=== PATIENT | male | born 1950 | race Caucasian/White ===

== ENCOUNTER 2023-09-12 09:58 | Observation (INO) | payer MEDICARE, OTHER, SELFPAY ==
[2023-09-12 09:59] VITALS: BP 151/74; PULSE 67; RESP 16; TEMP 36.2; O2SAT 97; BMI 24.5
--- NOTE | 2023-09-12 10:36 | CT_ITS ---
STUDY: CT ABDOMEN AND PELVIS WITH CONTRAST REASON FOR EXAM: Male, 73 years old. Abd pain RADIATION DOSAGE (If Supplied By Facility): CTDIvol = ( 12.14 ) mGy, DLP = ( 721.75 ) mGycm TECHNIQUE: Transaxial images were obtained from the dome of the diaphragm to the symphysis pubis without oral contrast. IV 100mL Isovue-370 was administered. Sagittal and coronal images were reconstructed. Individualized dose optimization techniques were used for this CT. COMPARISON: None. FINDINGS: The visualized lung bases are unremarkable. Coronary artery calcification. Normal liver. Normal gallbladder and extrahepatic biliary system. Normal spleen. There is diffuse atrophy of the pancreas. Normal bilateral adrenal glands. Normal right kidney. Punctate calculus in the posterior midpole of the left kidney. Normal visualized stomach. Normal small intestine. There are multiple colonic diverticula consistent with diverticulosis. The appendix is visualized and appears normal. There is diffuse atherosclerotic calcification of the abdominal aorta and its major visceral branches, without a demonstrated aneurysm. Normal inferior vena cava. Normal retroperitoneum. Diffuse bladder wall thickening. There are prostatic calcifications. There is a small umbilical hernia containing fat. There are mild degenerative changes of the visualized lumbar spine. There is straightening of the normal lumbar lordosis. Degenerative changes of the sacroiliac joints bilaterally. CT/Abdomen/Pelvis W IV Cont ONLY IMPRESSION: Punctate calculus in the posterior midpole of the left kidney. Sigmoid diverticulosis without evidence of diverticulitis. Electronically Signed: Arjun Saini MD at 12:42 EDT ,
--- NOTE | 2023-09-12 10:36 | EKG12_ITS ---
Test Reason : WEAKNESS Blood Pressure : / mmHG Vent. Rate : 065 BPM Atrial Rate : 065 BPM P-R Int : 182 ms QRS Dur : 090 ms QT Int : 438 ms P-R-T Axes : 061 035 058 degrees QTc Int : 455 ms Normal sinus rhythm Normal ECG Confirmed by Tylor Rizo ([id number]), web content editor LISS WIN ([id number]) on 09/16/2023 6:59:18 AM Referred By: Confirmed By:Tylor Rizo
--- NOTE | 2023-09-12 10:42 | EX.ED.DYSGE1 ---
HPI History of Present Illness Chief Complaint: Abd Pain Detail of Chief Complaint: Nausea, diarrhea, abdominal pain, back pain Informant: patient and family Narrative Narrative: Patient presents secondary to nausea with some mild abdominal pain and back pain. He is from [facility] and is here visiting his sister. She states that when he arrived here on Saturday he was not feeling well but Saturday was a good day. Saturday symptoms recurred. He does report chronic neck and back pain after a prior neck surgery. He is on Percocet chronically. He states he has had increased nausea and some diarrhea with occasional low back pain. Last evening he developed pain across his low back. [facility] Medical History (Updated 09/12/23 @ 12:[address] 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 Nano Sosa MD) History of cervical spinal surgery History of coronary artery stent placement Social History Smoking Status: Former smoker ROS ROS ED Constitutional Constitutional ED: Denies chills or fever(s) Eyes Eyes: Denies discharge from eye(s) ENT ENT ED: Denies discharge from eye(s), rhinorrhea or sore throat Cardiovascular Cardiovascular: Denies chest pain or palpitations Respiratory/Chest Respiratory/Chest: Denies cough or dyspnea Gastrointestinal Gastrointestinal: Reports abdominal pain, diarrhea and nausea; Denies vomiting Genitourinary Genitourinary ED: Reports difficulty urinating; Denies dysuria Musculoskeletal Musculoskeletal: Reports back pain; Denies extremity pain Integumentary Denies Abrasions or rash Neurologic Neurologic: Denies headache(s) or weakness Psychiatric Psychiatric: Denies anxiety or depression Allergic/Immunologic Allergic/Immunologic ED: Denies lip swelling or urticaria EXAM Physical Exam Const Vital Signs: 09/12/23 09:59 09/12/23 11:59 Temperature 97.2 F L Temperature Source Temporal Pulse Rate 67 65 Respiratory Rate 16 11 L Blood Pressure 151/74 H 155/73 H Blood Pressure Mean 99 100 Pulse Ox 97 97 Oxygen Delivery Method Room Air Room Air Positive well nourished and well developed General Appearance ED: well developed HEENT Reports moist mucous membranes Eyes EOMs intact bilaterally Neck no lymphadenopathy Chest Wall inspection of chest normal and palpation of chest normal Resp normal respiratory effort and clear to auscultation bilaterally Cardio regular rate and regular rhythm GI GI Narrative: Abdomen soft with no focal tenderness. Active bowel sounds noted throughout. No palpable masses. No guarding or rebound. Extremity normal to inspection Neuro oriented x3 and no sensory deficits noted Motor Exam: strength 5/5 throughout Psych mental status grossly normal Skin no rashes or lesions noted MDM MDM MDM Narrative Medical decision making narrative: Patient placed on maintenance mgr. IV line initiated. Labwork obtained to evaluate for leukocytosis, anemia, and electrolyte derangement. EKG obtained to evaluate for cardiac arrhythmia/ischemia. Urinalysis obtained to evaluate for infection/hematuria. CT scan of the abdomen and pelvis obtained to evaluate for bowel obstruction, kidney stone, urinary retention. Patient treated with morphine, Zofran, IV fluids. History & Record Review Discussion w/independent historian: Patient and Family Additional record(s) reviewed:: Prior labs Lab Data Attestation: I reviewed the patient's lab results. Labs: Laboratory Results - last 24 hr 09/12/23 09/12/23 10:18 11:06 WBC 6.3 RBC 3.98 L Hgb 12.5 L Hct 34.1 L MCV 85.7 MCH 31.4 MCHC 36.7 H RDW Std Deviation 36.8 RDW Coeff of Jodie 11.9 Plt Count 211 MPV 8.6 Immature Gran % (Auto) 0.600 Neut % (Auto) 72.4 H Lymph % (Auto) 15.5 L [place] % (Auto) 10.4 H Eos % (Auto) 0.8 Baso % (Auto) 0.3 Absolute Neuts (auto) 4.5 Absolute Lymphs (auto) 0.97 Nucleated RBC % 0 Sodium 121 L Potassium 3.4 L Chloride 86 L Carbon Dioxide 26.0 Anion Gap 9 BUN 8 Creatinine 0.70 Estim Creat Clear Calc 81.01 Est GFR (MDRD) Af Amer 142 Est GFR (MDRD) Non-Af 117 BUN/Creatinine Ratio 11.5 Glucose 104 Calcium 8.8 Total Bilirubin 1.70 H Direct Bilirubin 0.27 AST 15 ALT 27 Alkaline Phosphatase 53 Total Protein 7.1 Albumin 4.0 Globulin 3.1 Lipase 44 Urine Color Yellow Urine Clarity Clear Urine pH 7.0 Ur Specific [place] 1.010 Urine Protein Negative Urine Glucose (UA) Normal Urine Ketones Negative Urine Occult Blood 25 H Urine Nitrite Negative Urine Bilirubin Negative Urine Urobilinogen Normal Ur Leukocyte Esterase Negative Urine RBC 0 SEEN Urine WBC 0 SEEN Ur Squamous Epith Cells 0 SEEN Amorphous Sediment 1+ Urine Bacteria 0 SEEN Urine Mucus 0 SEEN Radiography Diagnostic Testing: Clinical Impression(s) from Imaging Studies Abdomen/Pelvis CT 09/12/23 10:36 IMPRESSION: Punctate calculus in the posterior midpole of the left kidney. Sigmoid diverticulosis without evidence of diverticulitis. Electronically Signed: Arjun Saini MD at 12:42 EDT , EKG Initial EKG: Attestation: I personally reviewed and interpreted this EKG as follows: Interpretation: Sinus Rhythm (Sinus at 65 with no acute ischemia.) Treatment and Re-Evaluation :: CBC was normal white count 6.3 with a hemoglobin of 12.5. 72% neutrophils noted. Chemistry studies significant for a sodium of 121 and a chloride of 86. Potassium is only slightly low at 3.4. Renal function is unremarkable. Total bilirubin is slightly elevated at 1.7. Remainder of LFTs and lipase are normal. Urinalysis reveals no evidence of acute infection. EKG is sinus rhythm with no evidence of acute ischemia. CT scan of the abdomen and pelvis reveals punctate calculus in the posterior midpole of left kidney. Sigmoid diverticulosis is noted without evidence of diverticulitis. Patient was able to provide a stool sample here. Fecal leukocytes are negative and C. difficile is negative. Remainder of stool studies are still pending at this time. Patient did get a dose of Phenergan and fentanyl for continued pain and nausea. He states that he has had problems with low sodium in the past and he was told by his doctors in [place] that it was because he was not eating and drinking appropriately to get the right nutrients. I was able to pull up prior labs and Clinisync. Over the last month and a half patient has had multiple admissions and labs with a sodium as low as 123. His most recent sodium level was 136 on August 29. Patient is currently receiving normal saline. With his sodium now being down 15 points in less than 2 weeks I do feel he will require admission for sodium repletion. I will speak with hospitalist regarding admission. Discharge Plan Triage Chief Complaint: Abd Pain ED Provider: Nano Sosa Dx/Rx/DC Orders Clinical Impression: Hyponatremia, Gastroenteritis Primary Care Provider: Care Physician,No Primary Referrals: Care Physician,No Primary [Primary Care Provider] - Print Language: Syriac Disposition Disposition: Acute Care Hospital [facility]
[2023-09-12 10:47] LABS: Absolute Lymphocyte Count 0.97 X10^3/uL (0.83-4.51); Absolute Neutrophil Count 4.5 X10^3/uL (2.0-7.7); Basophil# 0.02 X10^3/uL; Basophil% 0.3 % (0-1); Eosinophil# 0.05 X10^3/uL; Eosinophils% 0.8 % (0-5); Hematocrit 34.1 % (40-54); Hemoglobin 12.5 g/dL (13.0-16.5); Lymphocyte # 0.97 X10^3/ul (0.83-4.51); Lymphocyte % 15.5 % (19-41); Mean Corp Hgb Conc 36.7 g/dL (32-36); Mean Corpuscular Hgb 31.4 pg (27.0-32.0); Mean Corpuscular Volume 85.7 fL (80-94); Mean Platelet Vol. 8.6 fl (6.2-12.0); Monocyte# 0.65 X10^3/uL; Monocyte% 10.4 % (0-10); NRBC Flagged by Analyzer 0 % (0-5); Neutrophil # 4.53 X10^3/uL (2.7-7.7); Neutrophil % 72.4 % (47-70); Platelet Count 211 K/mm3 (150-450); RBC Distribution Width CV 11.9 % (11.6-14.6); RBC Distribution Width SD 36.8 fl (35.1-43.9); Red Blood Count 3.98 M/mm3 (4.6-6.2); White Blood Count 6.3 K/mm3 (4.4-11.0)
[2023-09-12] MEDS: 0.9% Normal Saline (1000mL) 1,000 ML 150 ML IV (11:05)
[2023-09-12] MEDS: Morphine 4 MG/ML Syringe IV (11:05)
[2023-09-12] MEDS: Ondansetron 4 MG/2 ML Vial IV ×2 (11:06→15:24)
[2023-09-12 11:14] LABS: Bacteria 0 SEEN /hpf (None Seen); Mucous, Urine 0 SEEN /hpf (<or=2+); Red Blood Cells-Urine 0 SEEN /hpf (0-5); Squamous Epithelial Cells - UA 0 SEEN /hpf (0-5); White Blood Cells 0 SEEN /hpf (0-5)
[2023-09-12 11:17] LABS: Color, Urine Yellow (Yellow); Glucose, Dipstick Normal (Normal); Ketone-Dipstick Negative (Negative); Leukocyte Esterase-Dipstick Negative /ul (Negative); Nitrite-Dipstick Negative (Negative); Occult Blood-Urine 25 /ul (Negative); Protein-Dipstick Negative (Negative); Urine Bilirubin Dipstick Negative (Negative); Urine Clarity Clear (Clear); Urine Urobilinogen Normal (Normal)
[2023-09-12 11:20] LABS: AST(SGOT) 15 U/L (15-37); Alanine Aminotransfer ALT/SGPT 27 U/L (16-61); Alkaline Phosphatase 53 U/L (45-117); Anion Gap 9 (5-15); BUN 8 mg/dL (7-18); BUN/Creat Ratio 11.5 RATIO (10-20); Bilirubin, Direct 0.27 mg/dL (0.00-0.30); Calcium,Total 8.8 mg/dL (8.5-10.1); Chloride 86 mmol/L (98-107); EST Glomerular Filtration Rate 117 mL/min (>60); Est Glom Filt Rate - Afr Amer 142 mL/min (>60); Estimated Creatinine Clearance 81.01 ml/min; Globulin 3.1 g/dL (2.2-4.2); Glucose 104 mg/dL (74-106); Lipase 44 U/L (13-75); Potassium 3.4 mmol/L (3.5-5.1); Protein, Total 7.1 g/dL (6.4-8.2); Sodium Level 121 mmol/L (136-145)
[2023-09-12 11:47] LABS: Amorphous Sediment 1+
[2023-09-12 11:59] VITALS: BP 155/73; PULSE 65; RESP 11; O2SAT 97
[2023-09-12] MEDS: fentaNYL 100 MCG/2 ML Ampul 25 MCG IV (12:29)
[2023-09-12] MEDS: 0.9% Normal Saline (1000mL) 1,000 ML 999 ML IV (12:29)
[2023-09-12] MEDS: proMETHazine 25 MG/ML Syringe 12.5 MG IM (12:30)
[2023-09-12 13:00] VITALS: BP 143/73; PULSE 70; RESP 12; O2SAT 97
--- NOTE | 2023-09-12 13:08 | HP.PCM.HOS_ITS ---
HPI - General General Date of Admission: 09/12/23 Date of Service: 09/12/23 Chief Complaint: Nausea HPI Narrative CORINNE SANDRA, is a 73 M with a significant history of chronic neck pain status post neck surgery and with a neck stimulator; hypertension; and hyponatremia who presents to the emergency department with nausea. His symptoms started about a week before presentation. Associated with his symptom is diarrhea which now is improving. Further, a day before presentation patient had excruciating lower back pain. At the emergency department patient was found to have hyponatremia. Reportedly patient is on sodium tablets. He reported that previous evaluation at outside facilities showed that he has had poor sodium intake. Of note patient lives outside in [place] and is visiting his sister in the neighborhood. 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 Devyn Weir MD) Other Atherosclerotic vascular disease Diabetes Surgical History History of cervical spinal surgery History of coronary artery stent placement Social History Smoking Status: Former smoker ROS ROS Narrative Pertinent positives and pertinent negatives as noted in HPI. All other systems were reviewed and are negative Vital Signs Vital Signs Vital Signs: 09/12/23 09:59 09/12/23 11:59 Temperature 97.2 F L Temperature Source Temporal Pulse Rate 67 65 Respiratory Rate 16 11 L Blood Pressure 151/74 H 155/73 H Blood Pressure Mean 99 100 Pulse Ox 97 97 Oxygen Delivery Method Room Air Room Air Weight Weight: 75.296 kg Body Mass Index (BMI) 24.5 Physical Exam Narrative Physical exam: General: Well-nourished, well-developed. Head: Normocephalic, atraumatic, no tenderness Eyes: Vision is grossly intact. EOMI ENT, no trauma, moist mucous membranes, no rhinorrhea Neck: Nontender, No thyromegaly. CVS: Regular rate and rhythm. S1-S2 present. No murmur, gallop or rub. Respiratory : clear to auscultation bilaterally, chest wall nontender Abdomen: Soft, nontender, nondistended, normal bowel sounds, no masses : Deferred Back: Nontender, no CVA tenderness, no midline spinal tenderness, deformities, step-offs Extremities: Pocket like device at left lower back. nontender full range of motion, no trauma Skin: Normal color, no trauma, abrasions Neuro: Alert, oriented, cranial nerves II through XII grossly intact. Psychiatry: Normal mood. Normal affect. Not depressed. Not anxious. Results Lab / Micro Data 09/12/23 10:18 09/12/23 10:18 Labs: Laboratory Results - last 24 hr 09/12/23 10:18: WBC 6.3, RBC 3.98 L, Hgb 12.5 L, Hct 34.1 L, MCV 85.7, MCH 31.4, MCHC 36.7 H, RDW Std Deviation 36.8, RDW Coeff of Jodie 11.9, Plt Count 211, MPV 8.6, Immature Gran % (Auto) 0.600, Neut % (Auto) 72.4 H, Lymph % (Auto) 15.5 L, [place] % (Auto) 10.4 H, Eos % (Auto) 0.8, Baso % (Auto) 0.3, Absolute Neuts (auto) 4.5, Absolute Lymphs (auto) 0.97, Nucleated RBC % 0, Sodium 121 L, Potassium 3.4 L, Chloride 86 L, Carbon Dioxide 26.0, Anion Gap 9, BUN 8, Creatinine 0.70, Estim Creat Clear Calc 81.01, Est GFR (MDRD) Af Amer 142, Est GFR (MDRD) Non-Af 117, BUN/Creatinine Ratio 11.5, Glucose 104, Calcium 8.8, Total Bilirubin 1.70 H , Direct Bilirubin 0.27, AST 15, ALT 27, Alkaline Phosphatase 53, Total Protein 7.1, Albumin 4.0, Globulin 3.1, Lipase 44 09/12/23 11:06: Urine Color Yellow, Urine Clarity Clear, Urine pH 7.0, Ur Specific [place] 1.010, Urine Protein Negative, Urine Glucose (UA) Normal, Urine Ketones Negative, Urine Occult Blood 25 H, Urine Nitrite Negative, Urine Bilirubin Negative, Urine Urobilinogen Normal, Ur Leukocyte Esterase Negative, Urine RBC 0 SEEN, Urine WBC 0 SEEN, Ur Squamous Epith Cells 0 SEEN, Amorphous Sediment 1+, Urine Bacteria 0 SEEN, Urine Mucus 0 SEEN Micro: Microbiology 09/12/23 11:10 Stool Stool Lactoferrin - Final 09/12/23 11:10 Stool Clostridioides difficile (PCR) - Final Imaging Radiology Impression Abdomen/Pelvis CT 09/12/23 10:36 IMPRESSION: Punctate calculus in the posterior midpole of the left kidney. Sigmoid diverticulosis without evidence of diverticulitis. Electronically Signed: Arjun Saini MD at 12:42 EDT , Assessment & Plan Assessment/Plan (1) Gastroenteritis: (2) Hyponatremia: (3) Hyperbilirubinemia: (4) Lower back pain: QUALIFIERS: Back pain laterality: bilateral Chronicity: acute S ciatica presence: without sciatica Qualified Code(s): M54.50 - Low back pain, unspecified PLAN: Plan Sodium presentation was 121. From previous lab outside facility pulled by ED Doc previous sodium on August 29 was 136. Meaning within 13 days patient's sodium had dropped by 15 points. Check uric acid Check urine osmolarity Check urine sodium Check serum osmolality Reports on sodium tablets at home. On the day of presentation he missed his sodium tablets. Sodium tablets ordered. Normal saline ordered. Lower back pain?has history of neck pain but lower back pain is new. Resume home pain regimen. Acute gastroenteritis?stool samples were obtained in the emergency department for studies, follow. Hyperbilirubinemia?total bili on presentation was 1.7. From records from outside hospital reported by ED physicians physician previous bilirubin was 0.4 and 0.6. Trend liver function tests Time spent in the patient's overall evaluation,decision-making process, review of diagnostic data, adjustment of management, discussion with other providers, nursing and ancillary staff involved in patient's care documentation, 70 minutes. Advance care planning: Discussed with patient and family advanced directives as well as CODE STATUS. Explained various CODE STATUS: FULL CODE, DNR CCA, DNR CCA with no intubation, and DNR CC- and what each meant. Patient elected to be a DNR CCA without intubation. Order was placed. Time spent on discussion 16 minutes. Charges/Coding Visit Charges Inpatient E&M: 64747 Init Hosp L3 Procedures Hospitalists Procedures: 67759 Advncd Care Plan 30 Min
[2023-09-12 13:37] VITALS: BP 143/73; PULSE 70; RESP 12; TEMP 36.2; O2SAT 97
[2023-09-12 14:14] LABS: Uric Acid 3.4 mg/dL (3.5-7.2)
[2023-09-12 14:30] VITALS: BMI 25.1
[2023-09-12] MEDS: 0.9% Normal Saline (1000mL) 1,000 ML 75 ML IV (14:33)
[2023-09-12 14:43] LABS: Urine Sodium 66 mmol/L (Not Establ.)
[2023-09-12 14:55] VITALS: BP 141/66; PULSE 73; RESP 16; TEMP 37.1; O2SAT 95
[2023-09-12 15:11] LABS: Osmolality, Serum 271 mOsm/KG (280-301)
[2023-09-12 15:12] LABS: Osmolality, Urine 415 mOsm/KG
[2023-09-12] MEDS: ALPRAZolam 0.25 MG Tablet PO ×2 (15:23→21:30)
[2023-09-12] MEDS: oxyCODONE 5 MG Tablet 10 MG PO ×2 (15:23→21:30)
[2023-09-12] MEDS: 0.9% Saline Lock 10 ML Syringe IV (15:24)
[2023-09-12 18:37] LABS: Anion Gap 9 (5-15); BUN 7 mg/dL (7-18); BUN/Creat Ratio 9.4 RATIO (10-20); Calcium,Total 8.2 mg/dL (8.5-10.1); Chloride 93 mmol/L (98-107); Creatinine, Serum 0.74 mg/dL (0.70-1.30); EST Glomerular Filtration Rate 109 mL/min (>60); Est Glom Filt Rate - Afr Amer 132 mL/min (>60); Estimated Creatinine Clearance 75.74 ml/min; Glucose 136 mg/dL (74-106); Potassium 3.4 mmol/L (3.5-5.1); Sodium Level 126 mmol/L (136-145)
[2023-09-12 20:19] VITALS: BP 147/69; PULSE 76; RESP 16; TEMP 37; O2SAT 95
[2023-09-12] MEDS: MELATONIN 3 MG TABLET PO (20:50)
[2023-09-12] MEDS: proCHLORPERazine 10 MG/2 ML Vial IV (20:50)
[2023-09-12] MEDS: Sodium Chloride 1 GM Tablet 2 GM PO (20:54)
[2023-09-12 22:34] LABS: Anion Gap 8 (5-15); BUN 9 mg/dL (7-18); BUN/Creat Ratio 14.3 RATIO (10-20); Calcium,Total 8.3 mg/dL (8.5-10.1); Chloride 97 mmol/L (98-107); Creatinine, Serum 0.63 mg/dL (0.70-1.30); EST Glomerular Filtration Rate 132 mL/min (>60); Est Glom Filt Rate - Afr Amer 160 mL/min (>60); Estimated Creatinine Clearance 75.74 ml/min; Glucose 107 mg/dL (74-106); Potassium 3.3 mmol/L (3.5-5.1); Sodium Level 129 mmol/L (136-145)
[2023-09-13 03:11] LABS: Anion Gap 10 (5-15); BUN 9 mg/dL (7-18); Calcium,Total 8.2 mg/dL (8.5-10.1); Chloride 98 mmol/L (98-107); EST Glomerular Filtration Rate 140 mL/min (>60); Est Glom Filt Rate - Afr Amer 169 mL/min (>60); Estimated Creatinine Clearance 75.74 ml/min; Glucose 103 mg/dL (74-106); Potassium 3.2 mmol/L (3.5-5.1); Sodium Level 132 mmol/L (136-145)
[2023-09-13] MEDS: oxyCODONE 5 MG Tablet 10 MG PO ×2 (03:28→09:44)
[2023-09-13] MEDS: 0.9% Normal Saline (1000mL) 1,000 ML 75 ML IV (03:29)
[2023-09-13 05:58] VITALS: BP 147/64; PULSE 69; RESP 16; TEMP 36.8; O2SAT 95
[2023-09-13 06:49] LABS: Absolute Lymphocyte Count 1.03 X10^3/uL (0.83-4.51); Absolute Neutrophil Count 2.7 X10^3/uL (2.0-7.7); Basophil# 0.02 X10^3/uL; Basophil% 0.4 % (0-1); Eosinophil# 0.07 X10^3/uL; Eosinophils% 1.6 % (0-5); Hematocrit 31.4 % (40-54); Hemoglobin 11.1 g/dL (13.0-16.5); Lymphocyte # 1.03 X10^3/ul (0.83-4.51); Lymphocyte % 22.9 % (19-41); Mean Corp Hgb Conc 35.4 g/dL (32-36); Mean Corpuscular Hgb 31.2 pg (27.0-32.0); Mean Corpuscular Volume 88.2 fL (80-94); Mean Platelet Vol. 8.6 fl (6.2-12.0); Monocyte# 0.63 X10^3/uL; NRBC Flagged by Analyzer 0 % (0-5); Neutrophil # 2.74 X10^3/uL (2.7-7.7); Neutrophil % 60.9 % (47-70); Platelet Count 177 K/mm3 (150-450); RBC Distribution Width CV 12.2 % (11.6-14.6); RBC Distribution Width SD 39.2 fl (35.1-43.9); Red Blood Count 3.56 M/mm3 (4.6-6.2); White Blood Count 4.5 K/mm3 (4.4-11.0)
[2023-09-13 07:30] LABS: AST(SGOT) 14 U/L (15-37); Alanine Aminotransfer ALT/SGPT 19 U/L (16-61); Albumin, Serum 3.1 g/dL (3.2-5.0); Alkaline Phosphatase 42 U/L (45-117); Anion Gap 6 (5-15); BUN 7 mg/dL (7-18); BUN/Creat Ratio 12.7 RATIO (10-20); Bilirubin, Direct 0.24 mg/dL (0.00-0.30); Calcium,Total 7.9 mg/dL (8.5-10.1); Chloride 99 mmol/L (98-107); Creatinine, Serum 0.55 mg/dL (0.70-1.30); EST Glomerular Filtration Rate 154 mL/min (>60); Est Glom Filt Rate - Afr Amer 186 mL/min (>60); Estimated Creatinine Clearance 75.74 ml/min; Globulin 2.6 g/dL (2.2-4.2); Glucose 101 mg/dL (74-106); Potassium 3.1 mmol/L (3.5-5.1); Protein, Total 5.7 g/dL (6.4-8.2); Sodium Level 131 mmol/L (136-145); Thyroid Stim Hormone (TSH) 4.81 uIU/mL (0.358-3.74)
[2023-09-13 07:35] VITALS: PULSE 80
[2023-09-13] MEDS: ALPRAZolam 0.25 MG Tablet PO (07:46)
[2023-09-13 09:31] VITALS: BP 166/77; PULSE 79; RESP 20; TEMP 36.7; O2SAT 98
[2023-09-13] MEDS: 0.9% Saline Lock 10 ML Syringe IV (09:37)
[2023-09-13] MEDS: Ondansetron 4 MG/2 ML Vial IV (09:37)
[2023-09-13] MEDS: Enoxaparin 40 MG/0.4 ML Syringe SC (09:37)
[2023-09-13] MEDS: Potassium Chloride Oral Tablet 20 MEQ 40 MEQ PO (09:38)
[2023-09-13] MEDS: Sodium Chloride 1 GM Tablet 2 GM PO (09:45)
--- NOTE | 2023-09-13 09:52 | NURSING ---
This RN talked with Pharmacist at [facility] in [place], [place] and got a updated Med List verbally from the Pharmacist. This RN informed Dr. Yoder that med list is now updated.
--- NOTE | 2023-09-13 11:16 | PCM.CONS.R ---
Assessment & Plan Assessment/Plan (1) Hyponatremia: PLAN: Impression/Plan: The patient is a 73-year-old male hypertension, CAD, GERD, BPH, hyperlipidemia, generalized anxiety disorder, and chronic neck pain. The patient presented to hospital with 1 day history of nausea, diarrhea and severe back pain. During workup in ED, he was found to have hyponatremia with serum sodium of 121 mmol/L. Nephrology is following for hyponatremia. Hyponatremia. Patient has hypotonic hyponatremia with serum osmolality of 271 mOsm/kg. Patient apparently has prior history of hyponatremia, and he was on salt tablet when he was admitted to hospital in [place], [place] on 08/30/2023. This with suggest that he has SIADH. Although urine studies with urine sodium more than 30 mmol/L and urine osmolality more than 100 mOsm/kg can be consistent with SIADH, the patient was taking hydrochlorothiazide prior to admission. Therefore, urine studies could also be consistent with hyponatremia from volume depletion related to thiazide diuretic. I would recommend stopping hydrochlorothiazide. There is no need to start salt tablet since serum sodium has improved with volume expansion and control of nausea. Okay to discharge. I would recommend that he follows up with PCP in [place] where he is from. Serum sodium should be rechecked along with urine studies off of hydrochlorothiazide. Hypertension. Adjustment of antihypertensive medication may be needed since we are stopping hydrochlorothiazide. This was discussed with Dr. Yoder. We will increase lisinopril to 20 mg twice daily. He can continue amlodipine at current dose of 10 mg/day. Patient does have home sphygmomanometer. HPI Consult Data Date of Consult: 09/13/23 HPI Narrative Reason for Consultation: Hyponatremia HPI Narrative: The patient is a 73-year-old male hypertension, CAD, GERD, BPH, hyperlipidemia, generalized anxiety disorder, and chronic neck pain. Patient presented to ED on 09/12/2023 with 1 day history of nausea, diarrhea, and severe back pain. During workup in ED, the patient was found to have serum sodium of 121 mmol/L (09/12/2023 at 10:18 AM). Patient currently has prior history of hyponatremia. On presentation, urine sodium was 66 mmol/L, and urine osmolality was 415 mOsm/kg. Patient was on hydrochlorothiazide prior to presentation. Patient has been on hydrochlorothiazide for more than 6 months. Patient reports that he was remitted to his local hospital in [place] on 08/30/2023. He was placed on salt tablet at that time because of low sodium. The patient denies current headache, nausea, or vomiting. Nausea has markedly improved since admission to the hospital. The patient denies chest pain, shortness of breath, or ataxia. There is mild edema of the lower extremities which has not changed in severity recently. The patient is on calcium channel tristin. He denies use of OTC medications including NSAIDs. [facility] Medical History (Updated 09/12/23 @ 14:50 by Thelma Wen) High cholesterol Cancer Anxiety Depression Chronic pain Kidney stones Chronic pain after spinal surgery Hypertension Myocardial infarct Home Medications ?Medication ?Instructions ?Recorded ?Last Taken ?Type alprazolam 0.25 mg tablet 0.25 mg PO .COMPLEX PRN anxiety 09/12/23 Unknown History oxycodone-acetaminophen 10 mg-325 1 tab PO Q4H PRN PRN pain 09/12/23 Unknown History mg tablet tamsulosin 0.4 mg capsule 0.8 mg PO DAILY 09/12/23 Unknown History amlodipine 10 mg tablet 10 mg PO DAILY 09/13/23 Unknown History atorvastatin 20 mg tablet 20 mg PO DAILY 09/13/23 Unknown History hydrochlorothiazide 25 mg tablet 25 mg PO DAILY 09/13/23 Unknown History isosorbide mononitrate 60 mg 60 mg PO DAILY 09/13/23 Unknown History tablet,extended release 24 hr lisinopril 20 mg tablet 20 mg PO DAILY 09/13/23 Unknown History magnesium 250 mg tablet 250 mg PO DAILY 09/13/23 Unknown History metoclopramide HCl 5 mg tablet 5 mg PO Q6H PRN nausea and vomiting 09/13/23 Unknown History (Reglan) metoprolol succinate 50 mg 50 mg PO DAILY 09/13/23 Unknown History tablet,extended release 24 hr oxybutynin chloride 5 mg 5 mg PO DAILY 09/13/23 Unknown History tablet,extended release 24 hr pantoprazole 40 mg tablet,delayed 40 mg PO BID 09/13/23 Unknown History release pantoprazole 40 mg tablet,delayed 40 mg PO BID 09/13/23 Unknown History release (Protonix) quetiapine 100 mg tablet (Seroquel) 100 mg PO QHS 09/13/23 Unknown History Allergy/AdvReac Type Severity Reaction Status Date / Time No Known Allergies Allergy Verified 09/12/23 09:59 Family History (Updated 09/12/23 @ 13:[address] Devyn Weir MD) Other Atherosclerotic vascular disease Diabetes Surgical History History of cervical spinal surgery History of coronary artery stent placement Social History Smoking Status: Former smoker ROS ROS Narrative 01/22 ROS was done and is otherwise noncontributory for from review of system already documented in HPI. Physical Exam Narrative General: Alert and oriented x3, NAD. HEENT: Normocephalic, atraumatic. Mucous membrane moist without erythema. PERRLA, EOMI. Hearing is intact. Neck: Supple, no JVD. Trachea is midline. No thyromegaly or lymphadenopathy. Cardiovascular: Normal S1, S2. No rubs, murmurs, or gallops. Respiratory: Lungs are clear to auscultation bilaterally. No wheezing, rhonchi, or rales. Abdomen: Normal bowel sounds, soft, nontender, no guarding or rebound, no organomegaly. Extremities: No clubbing or cyanosis. There is trace ankle edema. Musculoskeletal: Full passive range of motion, no joint swelling. Psychiatric: Normal mood and affect. Skin: Warm and dry, no rash. Neurologic: Cranial nerve II to XII are grossly intact. No focal neurologic deficits. 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 Lab / Micro Data 09/13/23 06:13 09/13/23 06:13 Labs: Laboratory Results - last 24 hr 09/12/23 10:18: Sodium 121 L, Potassium 3.4 L, Chloride 86 L, Carbon Dioxide 26.0, Anion Gap 9, BUN 8, Creatinine 0.70, Estim Creat Clear Calc 81.01, Est GFR (MDRD) Af Amer 142, Est GFR (MDRD) Non-Af 117, BUN/Creatinine Ratio 11.5, Glucose 104, Uric Acid 3.4 L, Calcium 8.8, Total Bilirubin 1.70 H, Direct Bilirubin 0.27, AST 15, ALT 27, Alkaline Phosphatase 53, Total Protein 7.1, Albumin 4.0, Globulin 3.1, Lipase 44 09/12/23 11:06: Urine Color Yellow, Urine Clarity Clear, Urine pH 7.0, Ur Specific [place] 1.010, Urine Protein Negative, Urine Glucose (UA) Normal, Urine Ketones Negative, Urine Occult Blood 25 H, Urine Nitrite Negative, Urine Bilirubin Negative, Urine Urobilinogen Normal, Ur Leukocyte Esterase Negative, Urine RBC 0 SEEN, Urine WBC 0 SEEN, Ur Squamous Epith Cells 0 SEEN, Amorphous Sediment 1+, Urine Bacteria 0 SEEN, Urine Mucus 0 SEEN, Urine Osmolality 415, Ur Random Sodium 66 09/12/23 14:10: Serum Osmolality 271 L 09/12/23 18:17: Sodium 126 L, Potassium 3.4 L, Chloride 93 L, Carbon Dioxide 24.0, Anion Gap 9, BUN 7, Creatinine 0.74, Estim Creat Clear Calc 75.74, Est GFR (MDRD) Af Amer 132, Est GFR (MDRD) Non-Af 109, BUN/Creatinine Ratio 9.4 L, Glucose 136 H, Calcium 8.2 L 09/12/23 22:10: Sodium 129 L, Potassium 3.3 L, Chloride 97 L, Carbon Dioxide 24.0, Anion Gap 8, BUN 9, Creatinine 0.63 L, Estim Creat Clear Calc 75.74, Est GFR (MDRD) Af Amer 160, Est GFR (MDRD) Non-Af 132, BUN/Creatinine Ratio 14.3, Glucose 107 H, Calcium 8.3 L 09/13/23 02:27: Sodium 132 L, Potassium 3.2 L, Chloride 98, Carbon Dioxide 24.0, Anion Gap 10, BUN 9, Creatinine 0.60 L, Estim Creat Clear Calc 75.74, Est GFR (MDRD) Af Amer 169, Est GFR (MDRD) Non-Af 140, BUN/Creatinine Ratio 15.0, Glucose 103, Calcium 8.2 L 09/13/23 06:13: WBC 4.5, RBC 3.56 L, Hgb 11.1 L, Hct 31.4 L, MCV 88.2, MCH 31.2, MCHC 35.4, RDW Std Deviation 39.2, RDW Coeff of Jodie 12.2, Plt Count 177, MPV 8.6, Immature Gran % (Auto) 0.200, Neut % (Auto) 60.9, Lymph % (Auto) 22.9, [place] % (Auto) 14.0 H, Eos % (Auto) 1.6, Baso % (Auto) 0.4, Absolute Neuts (auto) 2.7, Absolute Lymphs (auto) 1.03, Nucleated RBC % 0, Sodium 131 L, Potassium 3.1 L, Chloride 99, Carbon Dioxide 26.0, Anion Gap 6, BUN 7, Creatinine 0.55 L, Estim Creat Clear Calc 75.74, Est GFR (MDRD) Af Amer 186, Est GFR (MDRD) Non-Af 154, BUN/Creatinine Ratio 12.7, Glucose 101, Calcium 7.9 L, Total Bilirubin 0.60, Direct Bilirubin 0.24, AST 14 L, ALT 19, Alkaline Phosphatase 42 L, Total Protein 5.7 L, Albumin 3.1 L, Globulin 2.6, TSH 4.81 H, Cortisol 17.10 Micro: Microbiology 09/12/23 11:10 Stool Stool Lactoferrin - Final 09/12/23 11:10 Stool Enteric Bacteriology - Final Norovirus 09/12/23 11:10 Stool Clostridioides difficile (PCR) - Final Imaging Radiology Impression Abdomen/Pelvis CT 09/12/23 10:36 IMPRESSION: Punctate calculus in the posterior midpole of the left kidney. Sigmoid diverticulosis without evidence of diverticulitis. Electronically Signed: Arjun Saini MD at 12:42 EDT ,
--- NOTE | 2023-09-13 11:20 | CASEMGMT ---
Addendum entered by Sarah Ayala 09/13/23 13:45: Noted no PCP in chart. RN GEMMA into pt room, pt sitting up in bed in no distress. Pt states he does have a PCP back home. Original Note: SARA MENENDEZ into pt room, pt sitting up in bed with sister sitting at bedside. Pt denies any home going needs upon DC. Pt states I with ADL's, IADL's and driving. Pt states he is from out of town and here visiting his sister.
[2023-09-13 11:35] VITALS: BP 119/89; PULSE 89; RESP 20
--- NOTE | 2023-09-13 12:44 | DCINST_ITS ---
Discharge Instructions Diet Discharge Diet: No restrictions Activity Discharge Activity: Return to Normal Activity Weight Bearing Status: Full weight bearing Follow Up Care Test Results: Test results from this visit will be discussed in further detail at your follow- up appointment, if applicable. Discharge Plan Admission Admit Date/Time: 09/12/23 13:30 Primary Reason for Your Visit: low sodium Attending Provider: Anders Yoder Primary Care Provider: Care Physician,No Primary Consulting Providers: Devyn Weir; Hannah Grossman Instructions Additional Instructions / Restrictions: Do not take Hydrochlorothiazide, take two Lisinopril 20 mg tabs once a day, do not take salt pills Discharge Orders/Prescriptions Prescriptions: Continued alprazolam 0.25 mg tablet 0.25 mg PO .COMPLEX PRN (Reason: anxiety) Rx Instructions: 0.25 mg orally 3-4 times a day PRN; oxycodone-acetaminophen 10-325 mg tablet 1 tab PO Q4H PRN PRN (Reason: pain) tamsulosin 0.4 mg capsule 0.8 mg PO DAILY quetiapine [Seroquel] 100 mg tablet 100 mg PO QHS pantoprazole [Protonix] 40 mg tablet,delayed release (DR/EC) 40 mg PO BID metoclopramide HCl [Reglan] 5 mg tablet 5 mg PO Q6H PRN (Reason: nausea and vomiting) atorvastatin 20 mg tablet 20 mg PO DAILY metoprolol succinate 50 mg tablet extended release 24 hr 50 mg PO DAILY isosorbide mononitrate 60 mg tablet extended release 24 hr 60 mg PO DAILY amlodipine 10 mg tablet 10 mg PO DAILY pantoprazole 40 mg tablet,delayed release (DR/EC) 40 mg PO BID oxybutynin chloride 5 mg tablet extended release 24hr 5 mg PO DAILY magnesium 250 mg tablet 250 mg PO DAILY Changed lisinopril 20 mg tablet 40 mg PO DAILY Qty: 1 0RF Discontinued hydrochlorothiazide 25 mg tablet 25 mg PO DAILY Referrals / Follow Up: Care Physician,No Primary [Primary Care Provider] - Within 2 Weeks (get your sodium rechecked) Disposition Disposition (needs filled in before D/C Order can be placed): Home, Self Care
--- NOTE | 2023-09-13 12:53 | PCM.DC.SUM ---
Providers Date of Admission: 09/12/23 Date of Discharge: 09/13/23 Primary Care Physician: Shruthi Primary Care Phys Consultations 09/13/23 08:53 Consult: Nephrology Routine Consulting Provider: Hannah Grossman Reason for Consult: hyponatremia EMERGENT Consult: No MD Notified: Yes Date Notified: 09/13/23 Time Notified: 08:54 Method of Notification: Verbal Reason For Visit: HYPONATREMIA Diagnosis Discharge Diagnosis (1) Hyponatremia: Status: Acute Code(s): E87.1 - Hypo-osmolality and hyponatremia Plan 1. Hyponatremia-acute on chronic-secondary to hydrochlorothiazide usage #2 acute norovirus gastroenteritis #3 hypokalemia-secondary to hydrochlorothiazide usage #4 essential hypertension Medications at Discharge Home Medications alprazolam 0.25 mg tablet 0.25 mg PO .COMPLEX PRN anxiety 09/12/23 oxycodone-acetaminophen 10 mg-325 mg tablet 1 tab PO Q4H PRN PRN pain 09/12/23 tamsulosin 0.4 mg capsule 0.8 mg PO DAILY 09/12/23 amlodipine 10 mg tablet 10 mg PO DAILY 09/13/23 atorvastatin 20 mg tablet 20 mg PO DAILY 09/13/23 isosorbide mononitrate 60 mg tablet,extended release 24 hr 60 mg PO DAILY 09/13/23 lisinopril 20 mg tablet 40 mg (2 x 20 mg) PO DAILY #1 TAB 09/13/23 magnesium 250 mg tablet 250 mg PO DAILY 09/13/23 metoclopramide HCl 5 mg tablet (Reglan) 5 mg PO Q6H PRN nausea and vomiting 09/13/23 metoprolol succinate 50 mg tablet,extended release 24 hr 50 mg PO DAILY 09/13/23 oxybutynin chloride 5 mg tablet,extended release 24 hr 5 mg PO DAILY 09/13/23 pantoprazole 40 mg tablet,delayed release 40 mg PO BID 09/13/23 quetiapine 100 mg tablet (Seroquel) 100 mg PO QHS 09/13/23 Hospital Course Operations None Procedures None Summary of Care Provided Minutes Spent on Discharge: Hospital Course: Patient was seen in the emergency room at [facility] with complaints of nausea, diarrhea, generalized abdominal pain, and chronic back pain. Patient was visiting from [facility] and he is with his sister. Lab was obtained which showed a normal white blood cell count, patient's chemistry panel showed a potassium of 3.4, sodium of 121, bilirubin was elevated 1.7, urinalysis was unremarkable, CT of the abdomen and pelvis showed a punctate calculus in the posterior midpole of the left kidney and sigmoid diverticulosis. Patient was placed in observation status on MedSurg 3, enteric stool panel was positive for norovirus, patient's diarrhea resolved during his hospitalization, he was given IV fluids and potassium supplementation. He was seen in consultation by nephrology who felt that the patient's chronically low sodium was secondary to hydrochlorothiazide usage and recommended stopping the medication and stopping the patient's home sodium chloride pills. On 09/13/2023, patient was seen and examined: On examination he appeared in good health and spirits. Vital signs as documented. Skin warm and dry and without overt rashes. Neck without JVD, neck was supple, trachea midline, thyroid was normal. Lungs clear bilaterally, normal air movement was noted. Heart exam notable for regular rhythm, normal sounds and absence of murmurs, rubs or gallops. Abdomen unremarkable and without evidence of organomegaly, masses, or abdominal aortic enlargement. Bowel sounds are present, abdomen is not distended. Extremities nonedematous, no cyanosis was noted, no clubbing was noted. Neuro: Cranial nerves II through XII are grossly intact, no focal motor deficits were noted, sensation to light touch and pinprick intact, motor exam 5/5 throughout. Psych: Patient is alert and oriented x3, he does not appear anxious or depressed, he does not appear agitated. Patient appears stable for discharge home on 09/13/2023. 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 Weight / BMI Weight Weight: 72.83 kg Body Mass Index (BMI) 25.1 ABG / Lab / Microbiology Data 09/13/23 06:13 09/13/23 06:13 Laboratory: Laboratory Results - last 24 hr 09/12/23 10:18: Uric Acid 3.4 L 09/12/23 11:06: Urine Osmolality 415, Ur Random Sodium 66 09/12/23 14:10: Serum Osmolality 271 L 09/12/23 18:17: Sodium 126 L, Potassium 3.4 L, Chloride 93 L, Carbon Dioxide 24.0, Anion Gap 9, BUN 7, Creatinine 0.74, Estim Creat Clear Calc 75.74, Est GFR (MDRD) Af Amer 132, Est GFR (MDRD) Non-Af 109, BUN/Creatinine Ratio 9.4 L, Glucose 136 H, Calcium 8.2 L 09/12/23 22:10: Sodium 129 L, Potassium 3.3 L, Chloride 97 L, Carbon Dioxide 24.0, Anion Gap 8, BUN 9, Creatinine 0.63 L, Estim Creat Clear Calc 75.74, Est GFR (MDRD) Af Amer 160, Est GFR (MDRD) Non-Af 132, BUN/Creatinine Ratio 14.3, Glucose 107 H, Calcium 8.3 L 09/13/23 02:27: Sodium 132 L, Potassium 3.2 L, Chloride 98, Carbon Dioxide 24.0, Anion Gap 10, BUN 9, Creatinine 0.60 L, Estim Creat Clear Calc 75.74, Est GFR (MDRD) Af Amer 169, Est GFR (MDRD) Non-Af 140, BUN/Creatinine Ratio 15.0, Glucose 103, Calcium 8.2 L 09/13/23 06:13: WBC 4.5, RBC 3.56 L, Hgb 11.1 L, Hct 31.4 L, MCV 88.2, MCH 31.2, MCHC 35.4, RDW Std Deviation 39.2, RDW Coeff of Jodie 12.2, Plt Count 177, MPV 8.6, Immature Gran % (Auto) 0.200, Neut % (Auto) 60.9, Lymph % (Auto) 22.9, [place] % (Auto) 14.0 H, Eos % (Auto) 1.6, Baso % (Auto) 0.4, Absolute Neuts (auto) 2.7, Absolute Lymphs (auto) 1.03, Nucleated RBC % 0, Sodium 131 L, Potassium 3.1 L, Chloride 99, Carbon Dioxide 26.0, Anion Gap 6, BUN 7, Creatinine 0.55 L, Estim Creat Clear Calc 75.74, Est GFR (MDRD) Af Amer 186, Est GFR (MDRD) Non-Af 154, BUN/Creatinine Ratio 12.7, Glucose 101, Calcium 7.9 L, Total Bilirubin 0.60, Direct Bilirubin 0.24, AST 14 L, ALT 19, Alkaline Phosphatase 42 L, Total Protein 5.7 L, Albumin 3.1 L, Globulin 2.6, TSH 4.81 H, Cortisol 17.10 Microbiology: Microbiology 09/12/23 11:10 Stool Stool Lactoferrin - Final 09/12/23 11:10 Stool Enteric Bacteriology - Final Norovirus 09/12/23 11:10 Stool Clostridioides difficile (PCR) - Final D/C Instructions Discharge Diet: No restrictions Weight Bearing Status: Full weight bearing Meaningful Use Info Meaningful Use Meaningful Use Diagnoses (Choose all that apply): None applicable Ischemic Stroke Statin Dosing Therapy Reference: STATIN DOSE THERAPY REFERENCE: * Patients > 75 years receive moderate or high dose statin therapy. * Patients 75 years or YOUNGER should receive HIGH intensity statin dose unless contraindicated. You will be required to document reason for non-treatment if statin daily dose does not meet guidelines. HIGH DOSE STATIN THERAPY DAILY Atorvastatin > than or = to 40 mg Rosuvastatin > than or = to 20 mg Amlodipine + Atorvastatin > than or = to 2.5/40 mg Ezetimibe + Simvastatin 10/80 mg Simvastatin 80mg Discharge Plan Admission Admit Date/Time: 09/12/23 13:30 Primary Reason for Your Visit: low sodium Attending Provider: Anders Yoder Primary Care Provider: Care Physician,No Primary Consulting Providers: Devyn Weir; Hannah Grossman Instructions Additional Instructions / Restrictions: Do not take Hydrochlorothiazide, take two Lisinopril 20 mg tabs once a day, do not take salt pills Discharge Orders/Prescriptions Prescriptions: Continued alprazolam 0.25 mg tablet 0.25 mg PO .COMPLEX PRN (Reason: anxiety) Rx Instructions: 0.25 mg orally 3-4 times a day PRN; oxycodone-acetaminophen 10-325 mg tablet 1 tab PO Q4H PRN PRN (Reason: pain) tamsulosin 0.4 mg capsule 0.8 mg PO DAILY quetiapine [Seroquel] 100 mg tablet 100 mg PO QHS metoclopramide HCl [Reglan] 5 mg tablet 5 mg PO Q6H PRN (Reason: nausea and vomiting) atorvastatin 20 mg tablet 20 mg PO DAILY metoprolol succinate 50 mg tablet extended release 24 hr 50 mg PO DAILY isosorbide mononitrate 60 mg tablet extended release 24 hr 60 mg PO DAILY amlodipine 10 mg tablet 10 mg PO DAILY pantoprazole 40 mg tablet,delayed release (DR/EC) 40 mg PO BID oxybutynin chloride 5 mg tablet extended release 24hr 5 mg PO DAILY magnesium 250 mg tablet 250 mg PO DAILY Changed lisinopril 20 mg tablet 40 mg PO DAILY Qty: 1 0RF Discontinued hydrochlorothiazide 25 mg tablet 25 mg PO DAILY Referrals / Follow Up: Care Physician,No Primary [Primary Care Provider] - Within 2 Weeks (get your sodium rechecked) Disposition Disposition (needs filled in before D/C Order can be placed): Home, Self Care Charges/Coding Visit Charges Inpatient E&M: 70681 Disch Hosp >30min
[2023-09-13] MEDS: Ensure Plus High Protein 120 ML LIQUID PO (13:01)
--- NOTE | 2023-09-13 13:30 | PHA.DC.MR.R ---
Pharmacy [place] Med Reconciliation Pharmacy Service has performed discharge medication reconciliation for this patient. The patient's discharge medication list was reviewed for discrepancies and discrepancies were resolved. Medications at Discharge Home Medications alprazolam 0.25 mg tablet 0.25 mg PO .COMPLEX PRN anxiety 09/12/23 oxycodone-acetaminophen 10 mg-325 mg tablet 1 tab PO Q4H PRN PRN pain 09/12/23 tamsulosin 0.4 mg capsule 0.8 mg PO DAILY 09/12/23 amlodipine 10 mg tablet 10 mg PO DAILY 09/13/23 atorvastatin 20 mg tablet 20 mg PO DAILY 09/13/23 isosorbide mononitrate 60 mg tablet,extended release 24 hr 60 mg PO DAILY 09/13/23 lisinopril 20 mg tablet 40 mg (2 x 20 mg) PO DAILY #1 TAB 09/13/23 magnesium 250 mg tablet 250 mg PO DAILY 09/13/23 metoclopramide HCl 5 mg tablet (Reglan) 5 mg PO Q6H PRN nausea and vomiting 09/13/23 metoprolol succinate 50 mg tablet,extended release 24 hr 50 mg PO DAILY 09/13/23 oxybutynin chloride 5 mg tablet,extended release 24 hr 5 mg PO DAILY 09/13/23 pantoprazole 40 mg tablet,delayed release 40 mg PO BID 09/13/23 quetiapine 100 mg tablet (Seroquel) 100 mg PO QHS 09/13/23
== END 2023-09-13 13:52 | disposition home or self-care (01) ==
LOC: ED 13:06 → MS3 13:49
PROVIDERS: Admitting Provider Hospitalist; Emergency Provider Emergency Medicine; Visit Provider Internal Medicine
DX: E87.1 Hypo-osmolality and hyponatremia (principal); A08.11 Acute gastroenteropathy due to Norwalk agent; G89.29 Other chronic pain; M54.40 Lumbago with sciatica, unspecified side; I10 Essential (primary) hypertension; Z87.891 Personal history of nicotine dependence; E80.6 Other disorders of bilirubin metabolism; K57.30 Diverticulosis of large intestine without perforation or abscess without bleeding; K21.9 Gastro-esophageal reflux disease without esophagitis; I25.10 Atherosclerotic heart disease of native coronary artery without angina pectoris; E87.6 Hypokalemia; E78.00 Pure hypercholesterolemia, unspecified; R10.84 Generalized abdominal pain; F41.1 Generalized anxiety disorder; Z79.899 Other long term (current) drug therapy; T50.2X5A Adverse effect of carbonic-anhydrase inhibitors, benzothiadiazides and other diuretics, initial encounter; Z79.891 Long term (current) use of opiate analgesic; N40.0 Benign prostatic hyperplasia without lower urinary tract symptoms
CPT/HCPCS: 36415; 74177; 80048; 80076; 81001; 82533; 83630; 83690; 83930; 83935; 84300; 84443; 84550; 85025; 87177; 87209; 87493; 87506; 93005; 96361; 96372; 96374; 96375; 96376; 97802; 99221; 99285; J7030; Q9967; A4216; G0378; J2405